=== PATIENT | female | born 1970 | race Caucasian/White ===

== ENCOUNTER → 2018-02-15 14:06 | Outpatient (CLI) | payer SELFPAY ==
--- NOTE | 2018-02-15 14:06 | DT_ITS ---
This patient was seen during an EMR downtime February 10, 2018 - February 17, 2018. This patient may have a combination of paper and electronic documentation or all paper documentation. All documentation is viewable within the e-chart portion of [facility] for each patient visit.
[2018-02-15 14:12] LABS: Mucous, Urine 0 SEEN /hpf (<or=2+)
[2018-02-15 14:31] LABS: Bacteria 1+ /hpf (None Seen); Color, Urine Yellow (Yellow); Glucose, Dipstick NEGATIVE (Normal); Ketone-Dipstick 50 mg/dl (Negative); Leukocyte Esterase-Dipstick 25 /ul (Negative); Nitrite-Dipstick Negative (Negative); Occult Blood-Urine 25 /ul (Negative); Protein-Dipstick Negative (Negative); Red Blood Cells-Urine 0-5 SEEN /hpf (0-5); Specific Gravity, Urine 1.025 (1.002-1.030); Squamous Epithelial Cells - UA 0-5 SEEN /hpf (5-10); Urine Bilirubin Dipstick Negative (Negative); Urine Clarity Clear (Clear); Urine Urobilinogen Normal (Normal); White Blood Cells 0-5 SEEN /hpf (0-5)
== END ==
PROVIDERS: Visit Provider Physician Assistant Medical
DX: R35.0 Frequency of micturition (principal)
CPT/HCPCS: 81001; 87077; 87086; 87088; 87186